=== PATIENT | female | born 1965 | race Caucasian/White ===

== ENCOUNTER 2018-12-19 07:56 | Inpatient (IN) | payer MEDICAID | END 2018-12-21 15:28 | disposition home or self-care (01) | LOC: ER 07:56 → TELE 16:31 → TELE-WESTW 21:30 | DX: K80.20 Calculus of gallbladder without cholecystitis without obstruction (principal); J90 Pleural effusion, not elsewhere classified; E44.0 Moderate protein-calorie malnutrition; C34.90 Malignant neoplasm of unspecified part of unspecified bronchus or lung; C78.7 Secondary malignant neoplasm of liver and intrahepatic bile duct; C79.70 Secondary malignant neoplasm of unspecified adrenal gland; I48.0 Paroxysmal atrial fibrillation ==

== ENCOUNTER 2018-12-31 09:24 | Emergency (ER) | payer MEDICAID ==
[~2018-12-31] VITALS: Ht 167.6 cm; Wt 104.3 kg
[~2018-12-31 09:24] MED LIST: PANT40T PO
[2018-12-31 10:12] VITALS: BP 128/67
== END 2018-12-31 10:58 | disposition home or self-care (01) ==
LOC: ER 09:25
DX: M54.9 Dorsalgia, unspecified (principal); J44.9 Chronic obstructive pulmonary disease, unspecified; Z76.0 Encounter for issue of repeat prescription; Z98.51 Tubal ligation status; Z87.891 Personal history of nicotine dependence

== ENCOUNTER 2019-09-10 13:47 | Inpatient (IN) | payer MEDICAID ==
[~2019-09-10] VITALS: Ht 172.7 cm; Wt 119.9 kg
[~2019-09-10 13:47] MED LIST changes: +ALBU2TAB4 PO; +ALL300T PO
[2019-09-10] MEDS ORDERED: IPRATROPIUM BROM 0.5 MG/2.5ML INH SOL NEB ONE (14:00)
[2019-09-10] MEDS ORDERED: ALBUTEROL SULF 2.5 MG/0.5ML(0.5%) NEB SOLN NEB ONE (14:00)
[2019-09-10] MEDS ORDERED: methylPREDNISolone SOD SUCC 125 MG/2 ML VL IV ONE (14:15)
[2019-09-10 14:43] LABS: Basophils # (auto) 0 uL; Hemoglobin 12.7 g/dL (12.2-16.2); Monocytes # (auto) 0.4 uL; Monocytes % (auto) 5.5 % (0.0-12.0)
[2019-09-10 14:44] LABS: Basophils % (auto) 0.2 % (0.0-2.0); Eosinophils # (auto) 0.1 uL; Eosinophils % (auto) 0.8 % (0.0-7.0); Hematocrit 40.4 % (36.0-46.0); Lymphocytes # (auto) 0.6 uL; Lymphocytes % (auto) 8.1 % (10.0-50.0); Mean Corpuscular Hemoglobin 26.4 pg (28.0-32.0); Mean Corpuscular Hgb Conc. 31.5 g/dL (32.0-36.0); Mean Corpuscular Volume 83.9 fL (80.0-100.0); Neutrophils # (auto) 6.8 uL; Neutrophils % (auto) 85.4 % (37.0-80.0); Platelet Count (auto) 208 10^3/uL (140-450); Red Blood Cells 4.82 10^6/uL (4.0-5.20); Red Cell Distribution Width 16.7 % (11.8-14.3)
[2019-09-10 14:54] LABS: Alanine Aminotransferase 54 U/L (13-56); Albumin 2.9 g/dL (3.4-5.0); Anion Gap 4 (5-15); Carbon Dioxide 40 mmol/L (21-32); Chloride 94 mmol/L (98-107); Glucose 107 mg/dL (74-106); Potassium 4.3 mmol/L (3.5-5.1); Sodium 138 mmol/L (136-145)
[2019-09-10 14:59] LABS: Alkaline Phosphatase 98 U/L (45-117); Aspartate Aminotransferase 45 U/L (15-37); Bilirubin, Total 0.3 mg/dL (0.2-1.0); Blood Urea Nitrogen 9 mg/dL (7-18); GFR African American 187 mL/min; GFR Non-African American 154 mL/min
[2019-09-10] MEDS ORDERED: IOHEXOL 300 MG/ML 100ML BOTTLE IJ ONE (16:01)
[2019-09-10] MEDS ORDERED: ONDANSETRON HCL 4 MG/2 ML VIAL IV ONE (20:00)
[2019-09-10] MEDS ORDERED: MORPHINE SULFATE 4 MG/ML SYR/VIAL IV ONE (20:00)
[2019-09-10] MEDS ORDERED: VANCOMYCIN PER PHARMACY 0 MG IV SCH (20:15)
[2019-09-10] MEDS ORDERED: NITROGLYCERIN 0.4 MG SL TAB SL PRN (20:15)
[2019-09-10] MEDS ORDERED: MORPHINE SULF INJ 2 MG/ML SYRINGE 1ML IV PRN ×2 (20:15)
[2019-09-10] MEDS ORDERED: HYDROcodone-ACET 7.5/325MG TAB PO PRN (20:15)
[2019-09-10] MEDS ORDERED: LORazepam 2MG/ML-1ML VIAL IV PRN (20:15)
[2019-09-10] MEDS ORDERED: SUCCINYLCHOLINE CHLORIDE 20 MG/ML 10ML VIAL IV ONE ×2 (20:30→20:31)
[2019-09-10] MEDS ORDERED: ETOMIDATE (2MG/ML) 20ML VIAL IV ONE ×2 (20:30→20:31)
[2019-09-10] MEDS ORDERED: MIDAZOLAM DRIP 50 mg/50mL 50 ML IV ONE (20:32)
[2019-09-10] MEDS: MIDAZOLAM DRIP 50 mg/50mL 50 ML IV SCH (20:49)
[2019-09-10] MEDS ORDERED: PROPOFOL 100 ML IV ONE (20:59)
[2019-09-10] MEDS: PROPOFOL 100 ML IV SCH (21:04)
[2019-09-10] MEDS ORDERED: VANCOMYCIN 1GM/250ML 250 ML IV ONE (21:30)
[2019-09-10 22:37] VITALS: BP 121/73
[2019-09-10] MEDS: ALBUTEROL SULF 2.5 MG/0.5ML(0.5%) NEB SOLN NEB SCH (22:37)
[2019-09-10] MEDS: IPRATROPIUM BROM 0.5 MG/2.5ML INH SOL NEB SCH (22:37)
[2019-09-10] MEDS: VANCOMYCIN 1GM/250ML 250 ML IV SCH (22:46)
[2019-09-10] MEDS: FAMOTIDINE (10MG/ML) 2ML VL IV SCH (22:46)
[2019-09-10 22:59] LABS: Urine Bacteria FEW /hpf (None Seen); Urine Blood Negative /uL (Negative); Urine Hyaline Cast FEW /lpf (0 - 2); Urine Mucus FEW (None Seen); Urine WBC 1 /hpf (0 - 5)
[2019-09-10 23:10] LABS: Urine Specific Gravity > 1.050 (1.001-1.035)
[2019-09-11] VITALS (77 sets, daily range): BP systolic 97–134; BP diastolic 59–80
[2019-09-11] MEDS: MIDAZOLAM DRIP 50 mg/50mL 50 ML IV SCH ×4 (00:05→13:30)
[2019-09-11] MEDS ORDERED: ACETAMINOPHEN 650 MG RECT SUPP PR ONE (02:00)
[2019-09-11] MEDS: PROPOFOL 100 ML IV SCH ×3 (04:34→19:00)
[2019-09-11] MEDS: IPRATROPIUM BROM 0.5 MG/2.5ML INH SOL NEB SCH ×5 (05:38→22:13)
[2019-09-11] MEDS: ALBUTEROL SULF 2.5 MG/0.5ML(0.5%) NEB SOLN NEB SCH ×5 (05:38→22:13)
[2019-09-11] MEDS: VANCOMYCIN 1GM/250ML 250 ML IV SCH ×3 (06:23→23:30)
--- NOTE | 2019-09-11 07:15 | NUR ---
Respiratory note: MESSAGE LEFT FOR DR. VITALE CELL PHONE REGARDING CRITICAL AM ABG RESULTS.
--- NOTE | 2019-09-11 07:58 | NUR ---
Respiratory note: PT TRANSPORTED TO ICU 109 WITHOUT INCIDENT. ETT REMAINED IN PLACE AND SECURED BY A FLAKO. PT WAS VENTILATED VIA AMBU-BAG CONNECTED TO E-CYLINDER. PT PLACED BACK ONTO ORDERED VENT SETTINGS UPON ARRIVAL TO ICU.
[2019-09-11 08:55] LABS: Basophils # (auto) 0 uL; Basophils % (auto) 0.5 % (0.0-2.0); Eosinophils # (auto) 0 uL
[2019-09-11 08:57] LABS: Eosinophils % (auto) 0.2 % (0.0-7.0); Hematocrit 35.8 % (36.0-46.0); Hemoglobin 11.5 g/dL (12.2-16.2); Lymphocytes # (auto) 0.8 uL; Lymphocytes % (auto) 8.8 % (10.0-50.0); Mean Corpuscular Hemoglobin 26.6 pg (28.0-32.0); Mean Corpuscular Hgb Conc. 32.2 g/dL (32.0-36.0); Mean Corpuscular Volume 82.5 fL (80.0-100.0); Monocytes # (auto) 0.8 uL; Monocytes % (auto) 8.2 % (0.0-12.0); Neutrophils # (auto) 7.7 uL; Neutrophils % (auto) 82.3 % (37.0-80.0); Platelet Count (auto) 216 10^3/uL (140-450); Red Blood Cells 4.34 10^6/uL (4.0-5.20); Red Cell Distribution Width 16.9 % (11.8-14.3); White Blood Cell 9.3 10^3/uL (4.4-10.8)
[2019-09-11 09:08] LABS: INR 1.01 (0.9-1.15)
[2019-09-11 09:12] LABS: Albumin 2.6 g/dL (3.4-5.0); Calcium 8.9 mg/dL (8.5-10.1)
[2019-09-11] MEDS: NOREPINEPHRINE 8 MG/250ML KIT 250 ML IV SCH (09:13)
[2019-09-11 09:15] LABS: Bilirubin, Total 0.5 mg/dL (0.2-1.0); Total Protein 6.2 g/dL (6.4-8.2)
[2019-09-11] MEDS: FAMOTIDINE (10MG/ML) 2ML VL IV SCH ×2 (10:11→23:30)
[2019-09-11] MEDS: ENOXAPARIN SOD 40 MG/0.4 ML SYRINGE SC SCH (10:11)
[2019-09-11] MEDS: cefTRIAXone 1GM/50ML D5W 50 ML IV SCH (10:13)
--- NOTE | 2019-09-11 11:10 | NUR ---
DR GALLEGO VISITS AND EXAMINES PATIENT - NO NEW ORDERS RECEIVED. Addendum: 09/11/19 at 1139 by Karlee Hays RN DR GALLEGO SPEAKS WITH PATIENT'S DAUGHTER RE: CURRENT PATIENT CONDITION- VERBALIZES UNDERSTANDING.
--- NOTE | 2019-09-11 11:39 | NUR ---
DR GALLEGO VISITS AND EXAMINES PATIENT - ORDERS RECEIVED. CHEST ULTRASOUND DONE AT BEDSIDE PER MD - STATES VERY LITTLE FLUID PRESENT. PATIENT'S DAUGHTER AT BEDSIDE - UPDATED ON CURRENT PATIENT CONDITION AND NEED FOR TRANSFER TO HIGHER LEVEL OF CARE FOR MASS BLOCKING RIGHT MAINSTEM BRONCHUS AND NEED FOR POSSIBLE STENTING - ORDER PLACED. Addendum: 09/11/19 at 1142 by Karlee Hays RN PATIENT'S DAUGHTER VERBALIZES UNDERSTANDING OF ABOVE CONVERSATION. Addendum: 09/11/19 at 1150 by Karlee Hays RN ERROR - INCORRECT MD CHARTED - SHOULD BE DR FINCH.
--- NOTE | 2019-09-11 12:23 | NUR ---
I faxed higher level of care order/clinical information to [facility] and [facility] as well as [facility]-providing contact information for Dr. Garner as well as the nurse's station.
[2019-09-11] MEDS: methylPREDNISolone SOD SUCC 125 MG/2 ML VL IV SCH ×2 (14:29→23:30)
[2019-09-11] MEDS ORDERED: SODIUM CHLORIDE 0.9% 1,000 ML IV ONE (14:45)
--- NOTE | 2019-09-11 15:01 | NUR ---
1445 09/11/19 I spoke with Nica at the [facility] transfer center [phone]-provided her with contact information for Dr. Garner as well as the nurse's station-re faxed clinical information as requested. She said they have no ICU beds available at this time. I called [facility] transfer center and spoke with Sylc-[phone] (option 2, option 3)-provided him with additional clinical information as requested-they have contact information for MD as well as the nurse's station. I spoke with patient's nurse Karlee to update her on the status of the transfer. I spoke with [facility] Business Operations Specialist Gabriela [phone] regarding the need for transfer-authorization number for [facility] is [id number], and the authorization for the accepting facility is [id number].
--- NOTE | 2019-09-11 15:35 | NUR ---
DR TYLER VISITS AND EXAMINES PATIENT - ORDERS RECEIVED.
--- NOTE | 2019-09-11 16:51 | NUR ---
[facility] critical care transport placed on will call pending transfer to [facility].
[2019-09-11 18:21] LABS: Basophils # (auto) 0.1 uL; Monocytes # (auto) 0.8 uL; Nucleated Red Blood Cells % 0.1 %
[2019-09-11 18:25] LABS: Basophils % (auto) 0.7 % (0.0-2.0); Eosinophils # (auto) 0.1 uL; Eosinophils % (auto) 0.5 % (0.0-7.0); Lymphocytes # (auto) 0.8 uL; Lymphocytes % (auto) 8.4 % (10.0-50.0); Mean Corpuscular Hemoglobin 26.1 pg (28.0-32.0); Mean Corpuscular Hgb Conc. 31.5 g/dL (32.0-36.0); Mean Corpuscular Volume 82.8 fL (80.0-100.0); Monocytes % (auto) 8.8 % (0.0-12.0); Neutrophils # (auto) 7.9 uL; Neutrophils % (auto) 81.6 % (37.0-80.0); Platelet Count (auto) 240 10^3/uL (140-450); Red Blood Cells 4.59 10^6/uL (4.0-5.20); White Blood Cell 9.6 10^3/uL (4.4-10.8)
[2019-09-11 18:26] LABS: Albumin 2.7 g/dL (3.4-5.0); Bilirubin, Direct 0.2 mg/dL (0-0.2); Calcium 9.1 mg/dL (8.5-10.1); Magnesium 2.1 mg/dL (1.6-2.6); Potassium 4.8 mmol/L (3.5-5.1)
[2019-09-11 18:29] LABS: BUN/Creatinine Ratio 18.6; Bilirubin, Total 0.5 mg/dL (0.2-1.0); Total Protein 6.5 g/dL (6.4-8.2)
[2019-09-11 18:36] LABS: INR 0.99 (0.9-1.15)
[2019-09-12] VITALS (97 sets, daily range): BP systolic 93–123; BP diastolic 51–75
--- NOTE | 2019-09-12 00:45 | NUR ---
PROVIDED BED BATH WITH [facility]CG WIPES AND PARTIAL LINEN CHANGE; PT. TOLERATED WELL; WILL CONT. TO MONITOR.
[2019-09-12] MEDS: PROPOFOL 100 ML IV SCH ×3 (02:40→18:40)
[2019-09-12] MEDS: MIDAZOLAM DRIP 50 mg/50mL 50 ML IV SCH ×4 (02:41→20:45)
[2019-09-12 04:26] LABS: Basophils # (auto) 0.1 uL; Basophils % (auto) 0.6 % (0.0-2.0); Eosinophils # (auto) 0 uL; Hematocrit 35.2 % (36.0-46.0); Hemoglobin 11.3 g/dL (12.2-16.2); Lymphocytes # (auto) 0.4 uL; Mean Corpuscular Hemoglobin 26.5 pg (28.0-32.0); Mean Corpuscular Hgb Conc. 32.2 g/dL (32.0-36.0); Mean Corpuscular Volume 82.1 fL (80.0-100.0); Monocytes # (auto) 0.4 uL; Monocytes % (auto) 3.9 % (0.0-12.0); Neutrophils # (auto) 8.6 uL; Neutrophils % (auto) 91.5 % (37.0-80.0); Platelet Count (auto) 199 10^3/uL (140-450); Red Blood Cells 4.28 10^6/uL (4.0-5.20); Red Cell Distribution Width 17.2 % (11.8-14.3); White Blood Cell 9.4 10^3/uL (4.4-10.8)
[2019-09-12 04:39] LABS: INR 0.98 (0.9-1.15); Partial Thromboplastin Time 25.4 sec (23.64-32.05)
[2019-09-12 05:43] LABS: Albumin 2.6 g/dL (3.4-5.0); Calcium 8.6 mg/dL (8.5-10.1); Magnesium 2.2 mg/dL (1.6-2.6); Potassium 4.4 mmol/L (3.5-5.1)
[2019-09-12 05:46] LABS: BUN/Creatinine Ratio 24.2; Bilirubin, Direct 0.1 mg/dL (0-0.2); Bilirubin, Total 0.4 mg/dL (0.2-1.0); Total Protein 6.1 g/dL (6.4-8.2)
[2019-09-12] MEDS: IPRATROPIUM BROM 0.5 MG/2.5ML INH SOL NEB SCH ×5 (06:37→22:02)
[2019-09-12] MEDS: ALBUTEROL SULF 2.5 MG/0.5ML(0.5%) NEB SOLN NEB SCH ×5 (06:37→22:02)
[2019-09-12] MEDS: methylPREDNISolone SOD SUCC 125 MG/2 ML VL IV SCH ×3 (06:45→21:41)
[2019-09-12] MEDS: VANCOMYCIN 1GM/250ML 250 ML IV SCH ×3 (06:56→21:41)
--- NOTE | 2019-09-12 08:48 | NUR ---
0845 09/12/19 I called [facility] transfer center and spoke with Ciara, she said they are still working on getting the doctors to connect-and they have no ICU beds available right now.
--- NOTE | 2019-09-12 08:52 | NUR ---
0850 09/12/19 I called the [facility] transfer center [phone] and spoke with Gema, she said no ICU beds available yet, she will call me within an hour for an update.
[2019-09-12] MEDS: cefTRIAXone 1GM/50ML D5W 50 ML IV SCH (08:54)
[2019-09-12] MEDS: NOREPINEPHRINE 8 MG/250ML KIT 250 ML IV SCH ×2 (08:55→21:05)
--- NOTE | 2019-09-12 09:00 | NUR ---
SEDATION VACATION HELD DUE TO PATIENT WITH POSITIVE COUGH/GAG REFLEX, PERRLA 4MM AND BRISK AND WITHDRAWS ALL EXTREMITIES TO PAINFUL STIMULI Addendum: 09/12/19 at 1715 by Karlee Hays RN Amended: Links added.
--- NOTE | 2019-09-12 09:21 | NUR ---
0920 09/12/19 I faxed higher level of care order/clinical information to [facility] and [facility]-provided them with contact information for MD as well as the nurse's station.
--- NOTE | 2019-09-12 10:00 | NUR ---
assessment Patient is a 54 year old female who is on a vent. No family at bedside. Patients post discharge needs to be determined after extubation.
[2019-09-12] MEDS: ENOXAPARIN SOD 40 MG/0.4 ML SYRINGE SC SCH (10:30)
[2019-09-12] MEDS: FAMOTIDINE (10MG/ML) 2ML VL IV SCH ×2 (10:30→21:41)
--- NOTE | 2019-09-12 10:34 | NUR ---
I received a call from Junior at [facility] letting me know that they can not accept this patient because they do not have the capability to perform the required procedure.
--- NOTE | 2019-09-12 11:15 | NUR ---
Silvia from [facility] called - given clinical info as requested, also requested to speak with . notified - states will call after he evaluates patient.
--- NOTE | 2019-09-12 12:05 | NUR ---
WOUND CARE NOTE: PATIENT ADDED TO SKIN INTEGRITY MONITORING D/T PATIENT'S INTUBATION STATUS. PATIENT ADMITTED TO [facility] WITH DIAGNOSIS OF ACUTE HYPOXIC RESPIRATORY FAILURE. CURRENT HAIM SCORE IS 13. PATIENT IS WOUND FREE AT THIS TIME. SKIN/WOUND CARE PLAN IMPLEMENTED. PATIENT WOULD BENEFIT FROM FREQUENT TURN SCHEDULE Q 2 HOURS, PRN CONDITION PERMITS, WITH PRESSURE REDISTRIBUTION USING PILLOWS/WEDGES, BID/PRN APPLICATION OF MOISTURE BARRIER CREAM, OPTIFOAM GENTLE SACRAL DRESSING PREVENTATIVE, DIETARY CONSULT, SKIN/WOUND CARE PLAN, CONTINUED MONITORING BY WOUND CARE TEAM.
--- NOTE | 2019-09-12 12:06 | NUR ---
1200 09/12/19 I called [facility] transfer center [phone] and spoke with Mark, he said they have no ICU beds available at this time-to check back in at 1500.
--- NOTE | 2019-09-12 12:14 | NUR ---
1210 09/12/19 I called [facility] Transfer Center [phone] and left message regarding the transfer request for this patient.
--- NOTE | 2019-09-12 14:17 | NUR ---
1400 09/12/19 I spoke with Melody Guaman at the [facility] Transfer Center, provided her with the [facility] authorization number as well as contact information for Gabriela at [facility]. Melody Guaman said they will give me a call back to let me know if they can accept this patient. I spoke with patient's daughter Janelle Medrano regarding the status of the transfer-she was inquiring about [facility]-she is aware that it would have to be authorized by the insurance. I did call [facility] transfer center [phone] and spoke with Dirk, provided him with contact information for MD as well as faxing him requested clinical items to [phone]-he will review the information with his MD and give me a call back to let me know if this is a patient they can accept. I did call [facility] Senior Speech Pathologist Gabriela to make her aware of daughter's request for [facility], per Gabriela that is not a place they will generally authorize, especially if patient was receiving cancer treatment elsewhere.
--- NOTE | 2019-09-12 15:40 | NUR ---
Silvia from [facility] phones - states that [facility] does not have a rigid bronchoscope in order to do procedure so they have to decline patient.
--- NOTE | 2019-09-12 16:00 | NUR ---
RACH LEFT FOR DR COURTNEY RE: [facility] DECLINATION OF PATIENT.
[2019-09-12] MEDS ORDERED: HYDR-4833 PO (16:33)
[2019-09-12] MEDS ORDERED: BISA1TAB6 PO (16:34)
[2019-09-12] MEDS ORDERED: LORA2TAB89 PO (16:34)
[2019-09-12] MEDS ORDERED: MORP15TA PO (16:40)
--- NOTE | 2019-09-12 16:50 | NUR ---
DR TYLER VISITS AND EXAMINES PATIENT - NO NEW ORDERS RECEIVED.
--- NOTE | 2019-09-12 17:55 | NUR ---
RT NOTE RECEIVED PT INTUBATED AND ON VENT V20 ON STATED SETTINGS. VENT IS PLUGGED TO RED OUTLET. ALARMS ARE ON AND AUDIBLE AT NURSES STATION. AMBU BAG AT BEDSIDE AND CONNECTED TO O2 SOURCE. 8.0 ETT IS SECURED WITH ANCHORFAST AT 24 CM TO THE ORAL LEFT. BILATERAL BS ARE CLEAR/DIMINISHED. PT WAS SUCTIONED FOR MODERATE RETURN. HHN GIVEN INLINE WITH 2.5 MG ALBUTEROL AND 0.5 MG ATROVENT WITHOUT ADVERSE REACTION NOTED. PT TEMP 98.8. CONT ORDERED. POX 96% Addendum: 09/12/19 at 1940 by Pretty Taylor RT Amended: Links added.
--- NOTE | 2019-09-12 20:13 | NUR ---
RT NOTE ROUTINE VENT CHECK DONE. PT INTUBATED AND ON VENT V20 ON STATED SETTINGS. VENT IS PLUGGED TO RED OUTLET. ALARMS ARE ON AND AUDIBLE AT NURSES STATION. AMBU BAG AT BEDSIDE AND CONNECTED TO O2 SOURCE. 8.0 ETT IS SECURED WITH ANCHORFAST AT 24 CM TO THE ORAL LEFT. PT TEMP 98.8. CONT ORDERED. POX 96% Addendum: 09/12/19 at 2036 by Pretty Taylor RT Amended: Links added.
--- NOTE | 2019-09-12 22:04 | NUR ---
RT NOTE ROUTINE VENT CHECK DONE. PT INTUBATED AND ON VENT V20 ON STATED SETTINGS. VENT IS PLUGGED TO RED OUTLET. ALARMS ARE ON AND AUDIBLE AT NURSES STATION. AMBU BAG AT BEDSIDE AND CONNECTED TO O2 SOURCE. 8.0 ETT IS SECURED WITH ANCHORFAST AT 24 CM TO THE ORAL LEFT. BS ARE CLEAR/DIM. PT WAS SUCTIONED FOR SMALL RETURN. HHN GIVEN INLINE WITH 2.5 MG ALBUTEROL AND 0.5 MG ATROVENT WITHOUT ADVERSE REACTION NOTED. PT TEMP 99.0. CONT ORDERED. POX 96% Addendum: 09/12/19 at 2229 by Pretty Taylor RT Amended: Links added.
[2019-09-13] VITALS (100 sets, daily range): BP systolic 96–125; BP diastolic 55–72
--- NOTE | 2019-09-13 00:04 | NUR ---
RT NOTE ROUTINE VENT CHECK DONE. PT INTUBATED AND ON VENT V20 ON STATED SETTINGS. VENT IS PLUGGED TO RED OUTLET. ALARMS ARE ON AND AUDIBLE AT NURSES STATION. AMBU BAG AT BEDSIDE AND CONNECTED TO O2 SOURCE. 8.0 ETT IS SECURED WITH ANCHORFAST AT 24 CM TO THE ORAL LEFT. PT TEMP 99.0. CONT ORDERED. POX 96% Addendum: 09/13/19 at 0028 by Pretty Taylor RT Amended: Links added.
--- NOTE | 2019-09-13 00:46 | NUR ---
S/W [facility] # AND POSSIBLE BED AVAILABILITY; DR. Rachid DEAN PHONE NUMBER PROVIDED TO THEM TO ENABLE THEIR DOCTOR TO SPEAK WITH DR. DEAN.
--- NOTE | 2019-09-13 00:52 | NUR ---
S/W [facility] AGAIN AND NUMBERS PROVIDED WERE NOT ABLE TO REACH DR. Rachid DEAN; WILL INVESTIGATE FURTHER.
--- NOTE | 2019-09-13 01:13 | NUR ---
LEFT MESSAGE WITH Rachid DEAN ANSWERING SERVICE, # AND INFORMED HIM THAT [facility] MIGHT HAVE A BED AVAILABILITY AND NEEDED TO SPEAK WITH DOCTOR FOR FURTHER INFORMATION; TRANSFER CENTER NUMBER LEFT IN MESSAGE- .
--- NOTE | 2019-09-13 01:25 | NUR ---
S/W DR. Rachid DEAN AND HE WILL GET IN TOUCH WITH [facility] TO SEE ABOUT A BED AVAILABILITY.
--- NOTE | 2019-09-13 02:00 | NUR ---
[facility] CALLED BACK AND THEY INFORMED ME THAT THERE WAS NO ATTENDING AVAILABLE FOR TONIGHT TO ADMIT; WILL RECHECK IN AM.
--- NOTE | 2019-09-13 02:08 | NUR ---
RT NOTE ROUTINE VENT CHECK DONE. PT INTUBATED AND ON VENT V20 ON STATED SETTINGS. VENT IS PLUGGED TO RED OUTLET. ALARMS ARE ON AND AUDIBLE AT NURSES STATION. AMBU BAG AT BEDSIDE AND CONNECTED TO O2 SOURCE. 8.0 ETT IS SECURED WITH ANCHORFAST AT 24 CM TO THE ORAL LEFT. PT WAS SUCTIONED FOR SMALL RETURN. PT TEMP 98.8. CONT ORDERED. POX 97% Addendum: 09/13/19 at 0227 by Pretty Taylor RT Amended: Links added.
--- NOTE | 2019-09-13 03:30 | NUR ---
[facility] CALLED AND THEY HAVE A BED AND ACCEPTING PHYSICIAN; WILL PREPARE PATIENT FOR TRANFER.
--- NOTE | 2019-09-13 04:08 | NUR ---
RT NOTE ROUTINE VENT CHECK DONE. PT INTUBATED AND ON VENT V20 ON STATED SETTINGS. VENT IS PLUGGED TO RED OUTLET. ALARMS ARE ON AND AUDIBLE AT NURSES STATION. AMBU BAG AT BEDSIDE AND CONNECTED TO O2 SOURCE. 8.0 ETT IS SECURED WITH ANCHORFAST AT 24 CM TO THE ORAL LEFT. PT WAS SUCTIONED FOR SMALL RETURN. HME, T-PIECE AND INLINE SUCTION CHANGED WITHOUT ADVERSE REACTION NOTED. PT TEMP 98.8. CONT ORDERED. POX 97% Addendum: 09/13/19 at 0441 by Pretty Taylor RT Amended: Links added.
--- NOTE | 2019-09-13 04:09 | NUR ---
LEFT MESSAGE WITH DAUGHTER-ALEN ROJAS # IN REGARDS TO TRANSFER TO [facility]/ICU/# [id number] WHEN READY.
[2019-09-13 04:25] LABS: % Iron Saturation 7.7 % (15-50)
[2019-09-13 06:00] LABS: Ferritin 86.2 ng/mL (10-322)
[2019-09-13] MEDS: methylPREDNISolone SOD SUCC 125 MG/2 ML VL IV SCH ×2 (06:00→14:28)
[2019-09-13 06:01] LABS: Folate (Folic Acid) 8.36 ng/mL (5.38-24)
[2019-09-13] MEDS: ALBUTEROL SULF 2.5 MG/0.5ML(0.5%) NEB SOLN NEB SCH ×5 (06:08→22:24)
[2019-09-13] MEDS: IPRATROPIUM BROM 0.5 MG/2.5ML INH SOL NEB SCH ×5 (06:09→22:25)
[2019-09-13] MEDS: VANCOMYCIN 1GM/250ML 250 ML IV SCH ×2 (06:30→14:27)
--- NOTE | 2019-09-13 07:30 | NUR ---
TRANSFER TO [facility] CANCELLED TRANSFER CENTER FROM [facility] CALLING CONFIRMING THEY HAVE RECEIVED TRANSFER AND REPATRIATION. [facility] REQUESTING ETA FOR [facility]. CHART REVIEWED ORDERS FOR TRANSFER CONFIRMED. [facility] CALLED WITH ETA OF 1000. PACKET FINALIZED. 0800 [facility] FROM TRANSFER CENTER CALLED BACK STATING TRANSFER IS TO BE CANCELLED. HOSPITALIST AGREED TO ACCEPT PATIENT BUT [facility]ANQUET COOK REVIEWED CHART AND DOES NOT AGREE TO ACCEPT PATIENT AND IS RECOMMENDING [facility] CAMARA AT THIS TIME. [facility] CALLED TO CANCEL BUTTON CUTTING MACHINE OPERATOR. REHABILITATION AIDE AWARE.
[2019-09-13] MEDS: MIDAZOLAM DRIP 50 mg/50mL 50 ML IV SCH (08:03)
--- NOTE | 2019-09-13 08:44 | NUR ---
0830 09/13/19 I spoke with Nica at the [facility] transfer center and was told they can't accept this patient because they don't have the equipment to perform the requested procedure. I spoke with [facility] yesterday and was told that they can't accept the patient because they don't have the capability to perform the requested procedure. I called [facility] transfer center and spoke with Ciara, they are still trying to connect their doctors-they reached out to both Dr. Jase Nichols and Dr He-waiting for return call. I spoke with patient's primary nurse to update her on the status of the transfer.
[2019-09-13 08:57] LABS: Basophils # (auto) 0.1 uL; Eosinophils # (auto) 0 uL; Hematocrit 34.4 % (36.0-46.0); Lymphocytes # (auto) 0.4 uL; Mean Corpuscular Volume 82.4 fL (80.0-100.0); Monocytes # (auto) 0.4 uL; Neutrophils # (auto) 8.1 uL
[2019-09-13 08:58] LABS: Basophils % (auto) 1.3 % (0.0-2.0); Hemoglobin 10.9 g/dL (12.2-16.2); Lymphocytes % (auto) 4.1 % (10.0-50.0); Mean Corpuscular Hgb Conc. 31.6 g/dL (32.0-36.0); Monocytes % (auto) 4.4 % (0.0-12.0); Neutrophils % (auto) 90.2 % (37.0-80.0); Platelet Count (auto) 196 10^3/uL (140-450); Red Blood Cells 4.18 10^6/uL (4.0-5.20); Red Cell Distribution Width 16.9 % (11.8-14.3)
[2019-09-13 09:23] LABS: Albumin 2.6 g/dL (3.4-5.0); BUN/Creatinine Ratio 31.6; Calcium 8.9 mg/dL (8.5-10.1); Potassium 4.6 mmol/L (3.5-5.1)
[2019-09-13 09:26] LABS: Bilirubin, Total 0.3 mg/dL (0.2-1.0); Total Protein 6.3 g/dL (6.4-8.2)
[2019-09-13] MEDS: cefTRIAXone 1GM/50ML D5W 50 ML IV SCH (09:36)
[2019-09-13] MEDS: PROPOFOL 100 ML IV SCH ×2 (09:37→09:55)
[2019-09-13] MEDS: ENOXAPARIN SOD 40 MG/0.4 ML SYRINGE SC SCH (09:38)
[2019-09-13] MEDS: FAMOTIDINE (10MG/ML) 2ML VL IV SCH (09:38)
--- NOTE | 2019-09-13 11:32 | NUR ---
NUTRITION CONSULT/ASSESSMENT NOTES Please refer to link notes of nutrition screen form filed under the intervention section of the plan of care for further details. Est. Needs: 1750 kcal to 2350 kcal (15-20 kcal/kgBW), 94 gms to 117 gms pro (0.8-1.0 gms/kgBW). Will continue to monitor pertinent labs and reassess nutrient need prn Thank you for this consult. Addendum: 09/13/19 at [address] Amended: Links added.
--- NOTE | 2019-09-13 12:50 | NUR ---
SEWER INSPECTOR SPOKE WITH MD AT [facility]. DR. COURTNEY STATING MD FROM [facility] IS ACCEPTING TRANSFER BUT FAMILY NEEDS TO BE AWARE THERE IS A POSSIBILITY PROCEDURE CANNOT BE COMPLETED. DR. COURTNEY SPOKE WITH DAUGHTER ALEJANDRO, DAUGHTER VERBALIZED UNDERSTANDING AND STATING PATIENTS ONCOLOGIST IS RECOMMENDING TRANSFER TO [facility] AND [facility]. MD VERBALIZED UNDERSTANDING. CASE MANAGEMENT NOTIFIED.
--- NOTE | 2019-09-13 14:38 | NUR ---
1430 09/13/19 I spoke with [facility] Bell Maker Gabriela [phone] to let her know that we have had 3 facilities ([facility], [facility] and [facility]) decline this patient because they can not perform the procedure that is being requested. Per Gabriela at this time she can not give authorization for [facility]. She suggested that I reach out to [facility] and [facility]. I faxed transfer request/clinical information to both [facility] and [facility] along with contact information for Dr. Nichols/Dr. He and the nurse's station.
--- NOTE | 2019-09-13 14:54 | NUR ---
1450 09/13/19 I received a call from Yvonne at the [facility] transfer center, they did receive faxed information-I provided her with authorization number from [facility] as well as contact information for [facility] Bureau Chief Gabriela.
--- NOTE | 2019-09-13 16:00 | NUR ---
Family updated on pt status Family of ALEN ROJAS updated on patient's status and condition. All questions and concerns addressed. DaughterJanelle verbalized understanding.
--- NOTE | 2019-09-13 16:15 | NUR ---
ROUND DR. DEAN UPDATED DAUGHTER ALEJANDRO AND SON AT BEDSIDE ON PATIENTS CURRENT STATUS. QUESTIONS AND CONCERNS ADDRESSED. SEE NEW ORDERS.
--- NOTE | 2019-09-13 17:00 | NUR ---
Gastric residual Patient noted to have approx 50cc brown/ green bilious output via og. Hypoactive bs. Adb soft. Order for Reglan obtained by . Feedings to be started when delivered.
[2019-09-13] MEDS ORDERED: Jevity 1.2 Cal/Fiber 1 Liter GT SCH (19:30)
[2019-09-13] MEDS: NOREPINEPHRINE 8 MG/250ML KIT 250 ML IV SCH (21:05)
[2019-09-14] VITALS (104 sets, daily range): BP systolic 105–153; BP diastolic 55–84
[2019-09-14] MEDS: METOCLOPRAMIDE HCL 5MG/ml INJ 2ml VIAL IV SCH ×4 (01:10→22:00)
[2019-09-14] MEDS: FAMOTIDINE (10MG/ML) 2ML VL IV SCH ×3 (01:10→22:00)
[2019-09-14] MEDS: methylPREDNISolone SOD SUCC 125 MG/2 ML VL IV SCH ×4 (01:11→22:00)
[2019-09-14] MEDS: VANCOMYCIN 1GM/250ML 250 ML IV SCH ×4 (01:11→22:30)
[2019-09-14] MEDS: IPRATROPIUM BROM 0.5 MG/2.5ML INH SOL NEB SCH ×5 (06:34→22:59)
[2019-09-14] MEDS: ALBUTEROL SULF 2.5 MG/0.5ML(0.5%) NEB SOLN NEB SCH ×5 (06:34→22:59)
--- NOTE | 2019-09-14 07:49 | NUR ---
SHIFT OPENING NOTE REPORT RECEIVED FROM FORMING TUBE SELECTOR. PATIENT ON MECHANICAL VENTILATOR, SEDATED WITH PROPOFOL AND VERSED, NO VASOPRESSORS. LUNGS CLEAR THROUGHOUT WITH CLEAR ORAL SECRETIONS. ABDOMEN ROUND, SOFT AND NONTENDER, HYPOACTIVE BOWEL SOUNDS. RICH DRAINING LIGHT KLAUDIA URINE WITH BAG FREE OF KINKS AND HUNG BELOW BLADDER. SCD'S BILATERALLY TO LOWER EXTREMITIES, SKIN INTEGRITY SEE ASSESSMENT
[2019-09-14] MEDS: ENOXAPARIN SOD 40 MG/0.4 ML SYRINGE SC SCH (09:30)
[2019-09-14] MEDS: cefTRIAXone 1GM/50ML D5W 50 ML IV SCH (09:30)
[2019-09-14] MEDS: MIDAZOLAM DRIP 50 mg/50mL 50 ML IV SCH ×2 (11:30→16:13)
[2019-09-14] MEDS: PROPOFOL 100 ML IV SCH ×2 (11:31→16:52)
--- NOTE | 2019-09-14 11:52 | NUR ---
DR. EAGLE AT BEDSIDE
--- NOTE | 2019-09-14 11:54 | NUR ---
DR. COURTNEY AT BEDSIDE
[2019-09-14] MEDS: DexMEDEtomidine 400 MCG in D5W 5% 96 ML IV SCH (12:31)
--- NOTE | 2019-09-14 14:07 | NUR ---
PARTIAL LINEN CHANGE PERFORMED AT THIS TIME
--- NOTE | 2019-09-14 15:37 | NUR ---
TUBE FEEDING RESTARTED
[2019-09-14 18:15] LABS: Basophils # (auto) 0 uL; Eosinophils # (auto) 0 uL; Hemoglobin 11.2 g/dL (12.2-16.2); Lymphocytes # (auto) 0.3 uL; Mean Corpuscular Hemoglobin 26.3 pg (28.0-32.0); Monocytes # (auto) 0.5 uL; Neutrophils # (auto) 7.1 uL; White Blood Cell 7.9 10^3/uL (4.4-10.8)
[2019-09-14 18:18] LABS: Basophils % (auto) 0.3 % (0.0-2.0); Hematocrit 34.9 % (36.0-46.0); Lymphocytes % (auto) 3.9 % (10.0-50.0); Mean Corpuscular Volume 82.4 fL (80.0-100.0); Monocytes % (auto) 6.1 % (0.0-12.0); Neutrophils % (auto) 89.7 % (37.0-80.0); Platelet Count (auto) 205 10^3/uL (140-450); Red Blood Cells 4.24 10^6/uL (4.0-5.20); Red Cell Distribution Width 17.2 % (11.8-14.3)
[2019-09-14 18:27] LABS: INR 0.99 (0.9-1.15); Partial Thromboplastin Time 23.3 sec (23.64-32.05)
[2019-09-14 18:44] LABS: Albumin 2.6 g/dL (3.4-5.0); Calcium 8.8 mg/dL (8.5-10.1); Magnesium 2.4 mg/dL (1.6-2.6); Potassium 3.9 mmol/L (3.5-5.1)
[2019-09-14 18:48] LABS: BUN/Creatinine Ratio 38.6; Bilirubin, Direct 0.3 mg/dL (0-0.2); Bilirubin, Total 0.5 mg/dL (0.2-1.0); Total Protein 6.5 g/dL (6.4-8.2)
[2019-09-14] MEDS: NOREPINEPHRINE 8 MG/250ML KIT 250 ML IV SCH (21:05)
[2019-09-15] VITALS (85 sets, daily range): BP systolic 107–172; BP diastolic 54–91
[2019-09-15] MEDS ORDERED: METOCLOPRAMIDE HCL 5MG/ml INJ 2ml VIAL ONE
[2019-09-15 04:09] LABS: Basophils # (auto) 0 uL; Eosinophils # (auto) 0 uL; Lymphocytes # (auto) 0.4 uL; Monocytes # (auto) 0.5 uL
[2019-09-15 04:14] LABS: Basophils % (auto) 0.2 % (0.0-2.0); Hematocrit 32.8 % (36.0-46.0); Hemoglobin 10.5 g/dL (12.2-16.2); Mean Corpuscular Hemoglobin 26.5 pg (28.0-32.0); Mean Corpuscular Hgb Conc. 32.1 g/dL (32.0-36.0); Mean Corpuscular Volume 82.6 fL (80.0-100.0); Monocytes % (auto) 6.8 % (0.0-12.0); Neutrophils # (auto) 6.4 uL; Nucleated Red Blood Cells % 0.1 %; Platelet Count (auto) 194 10^3/uL (140-450); Red Blood Cells 3.97 10^6/uL (4.0-5.20); Red Cell Distribution Width 17.1 % (11.8-14.3); White Blood Cell 7.3 10^3/uL (4.4-10.8)
[2019-09-15 04:22] LABS: INR 0.99 (0.9-1.15); Partial Thromboplastin Time 23.8 sec (23.64-32.05)
[2019-09-15 04:44] LABS: Calcium 8.5 mg/dL (8.5-10.1); Potassium 4.1 mmol/L (3.5-5.1)
[2019-09-15 04:52] LABS: Albumin 2.5 g/dL (3.4-5.0); BUN/Creatinine Ratio 42.4; Bilirubin, Direct 0.2 mg/dL (0-0.2); Bilirubin, Total 0.4 mg/dL (0.2-1.0); Magnesium 2.4 mg/dL (1.6-2.6)
[2019-09-15] MEDS: DexMEDEtomidine 400 MCG in D5W 5% 96 ML IV SCH (05:38)
[2019-09-15] MEDS: methylPREDNISolone SOD SUCC 125 MG/2 ML VL IV SCH (06:00)
[2019-09-15] MEDS: METOCLOPRAMIDE HCL 5MG/ml INJ 2ml VIAL IV SCH ×2 (06:00→14:16)
[2019-09-15] MEDS: IPRATROPIUM BROM 0.5 MG/2.5ML INH SOL NEB SCH ×4 (06:10→19:27)
[2019-09-15] MEDS: ALBUTEROL SULF 2.5 MG/0.5ML(0.5%) NEB SOLN NEB SCH ×4 (06:10→19:27)
[2019-09-15] MEDS: VANCOMYCIN 1GM/250ML 250 ML IV SCH (06:30)
--- NOTE | 2019-09-15 07:15 | NUR ---
OPENING NOTE SHIFT REPORT RECEIVED AND ASSUMED CARE OF PT FROM RIKA FUENTES
--- NOTE | 2019-09-15 08:00 | NUR ---
TUBE FEEDING TURNED OFF DUE TO CPAP TRIAL IN AM
[2019-09-15] MEDS: FAMOTIDINE (10MG/ML) 2ML VL IV SCH (09:44)
[2019-09-15] MEDS: cefTRIAXone 1GM/50ML D5W 50 ML IV SCH (09:44)
[2019-09-15] MEDS: ENOXAPARIN SOD 40 MG/0.4 ML SYRINGE SC SCH (09:45)
[2019-09-15] MEDS: PROPOFOL 100 ML IV SCH ×2 (09:52→20:01)
--- NOTE | 2019-09-15 11:00 | NUR ---
DR. COURTNEY AT BEDSIDE ORDERS RECEIVED
--- NOTE | 2019-09-15 11:40 | NUR ---
DR. Rachid DEAN AT BEDSIDE ORDERS RECEIVED
--- NOTE | 2019-09-15 11:50 | NUR ---
Nutrition Follow-up Notes Wt.: 119.9 kg today. Pt's intubated, no immediate family member at bedside during rounds this morning. Pt's currently sedated with Propofol @ 18.513 ml/hr providing 410 kcal from Fat. Pt's currently NPO, just restarted the EN support earlier d/t high residuals yesterday, with order for Jevity 1.2 Moshe @ 50 ml/hr providing 1440 kcal, 67 gms pro and 968 ml free water. Est. Needs: 1750 kcal to 2350 kcal (15-20 kcal/kgBW), 94 gms to 117 gms pro (0.8-1.0 gms/kgBW). Will continue to monitor pertinent labs and reassess nutrient need prn Labs: Gluc 141 H, Cl 94 L, CO2 38 H, BUN 25 H, AST 122 H, ALT 196 H, Tpro 6.0 L, Alb 2.0 L Skin: Dwayne scale 13, mod risk, skin intact per property caretaker. GI: Pt's no bowel activity since 09/10/19 per property caretaker. PES: Increased nutrient needs r/t acute/chronic medical condition aeb intubated, sedated, CA, mod hypoalbuminemia, NPO. Altered nutrition related lab values r/t current/chronic medical condition aeb hyperglycemia, hypochloremia, hypocapnia, and mod hypoalbuminemia Obesity r/t food intake more than body requirement aeb 184% IBW, BMI 39.2 kg/m2 and increased body adiposity Will continue to monitor NPO status, EN tolerance, skin status, pertinent labs and weight trend. F/u in 2 to 3 days. Rec.: 1.) If still NPO with EN support, consider gradual increase on feeding rate of Jevity 1.2 Moshe to 55 ml/hr goal rate as tolerated while in current rate of Propofol when medically appropriate. 2.) If Albumin continues trending down, consider Prostat 1 pkt BID. 3.) Advance gradually to oral diet when medically appropriate. 4.) Refer to RD for further nutrition educ. and weight monitoring upon discharge. 5.) Continue current plan of care.
[2019-09-15] MEDS ORDERED: methylPREDNISolone SOD SUCC 125 MG/2 ML VL IV SCH (14:00)
--- NOTE | 2019-09-15 18:00 | NUR ---
PT IS MORE ALERT AND RESPONDS TO SIMPLE COMMANDS WITH SPONTANEOUS EYE OPENING
--- NOTE | 2019-09-15 19:20 | NUR ---
CLOSING NOTE SHIFT REPORT GIVEN AND CARE ENDORSED TO BARBARA FUENTES
--- NOTE | 2019-09-15 19:20 | NUR ---
BED BED ASSIGNMENT FOR [facility] ROOM 7429 . CALL PLACED TO DAUGHTER ALEJANDRO FOR UPDATE WITH NO ANSWER. MESSAGE LEFT, WILL AWAIT RETURN CALL
--- NOTE | 2019-09-15 19:40 | NUR ---
MD DR GALLEGOS CALLED WITH UPDATED TRANSFER INFORMATION. STATED "YES, PLEASES LETS GO AHEAD WITH THE TRANSFER"
--- NOTE | 2019-09-15 19:50 | NUR ---
REPORT REPORT CALLED TO MEHNAZ FUENTES. [facility] RF TECHNICIAN TIME 2030. ALL QUESTIONS ANSWERED.
[2019-09-15] MEDS: MIDAZOLAM DRIP 50 mg/50mL 50 ML IV SCH (20:34)
[2019-09-15] MEDS: NOREPINEPHRINE 8 MG/250ML KIT 250 ML IV SCH (20:35)
--- NOTE | 2019-09-15 21:00 | NUR ---
[facility] AT BEDSIDE FOR TRANSFER.
--- NOTE | 2019-09-15 21:30 | NUR ---
DISCHARGE PT BEING TRANSFERRED TO HIGHER LEVEL OF CARE AT [facility]. PT TRANSFERRED TO [facility] CONNECTED TO [facility] MONITORS AND VENTILATOR. AL PT BELONGINGS TRANSFERRED WITH PATIENT. DAUGHTER ALEJANDRO UPDATED ON TRANSFER, WILL MEET PATIENT AT [facility]. [facility] CALLED WITH UPDATED VITALS AND TRANSFER TIME. CARE TRANSFERRED TO [facility] CCT GINA ALLEN
== END 2019-09-15 21:30 | disposition short-term general hospital (02) | DRG 720 ==
LOC: EDBD 13:47 → ER 14:07 → TELE 14:08 → ICU WEST 09-11 07:15
PROVIDERS: ADMIT Nurse Practitioner Acute Care; ATTEND Internal Medicine
PROC: 5A1955Z Respiratory Ventilation, Greater than 96 Consecutive Hours (ICD-10-PCS; principal; 2019-09-10)
PROC: 0BH17EZ Insertion of Endotracheal Airway into Trachea, Via Natural or Artificial Opening (ICD-10-PCS; 2019-09-10)
DX: A41.9 Sepsis, unspecified organism (principal); J96.21 Acute and chronic respiratory failure with hypoxia; J18.9 Pneumonia, unspecified organism; J91.0 Malignant pleural effusion; J44.0 Chronic obstructive pulmonary disease with (acute) lower respiratory infection; E44.0 Moderate protein-calorie malnutrition; C78.7 Secondary malignant neoplasm of liver and intrahepatic bile duct; C34.91 Malignant neoplasm of unspecified part of right bronchus or lung; J98.11 Atelectasis; J44.1 Chronic obstructive pulmonary disease with (acute) exacerbation; R65.20 Severe sepsis without septic shock; F17.210 Nicotine dependence, cigarettes, uncomplicated; E66.9 Obesity, unspecified; K21.9 Gastro-esophageal reflux disease without esophagitis; J96.22 Acute and chronic respiratory failure with hypercapnia; M10.9 Gout, unspecified; R59.0 Localized enlarged lymph nodes; E87.2 Acidosis; Z68.41 Body mass index [BMI] 40.0-44.9, adult; Z99.81 Dependence on supplemental oxygen; Z85.858 Personal history of malignant neoplasm of other endocrine glands; Z90.89 Acquired absence of other organs; Z98.51 Tubal ligation status; Z80.8 Family history of malignant neoplasm of other organs or systems; Z83.3 Family history of diabetes mellitus; Z82.49 Family history of ischemic heart disease and other diseases of the circulatory system; Z79.899 Other long term (current) drug therapy
CPT/HCPCS: 36415; 36600; 71045; 71260; 76604; 80048; 80053; 80076; 80202; 81001; 82607; 82728; 82746; 82805; 83540; 83550; 83605; 83735; 83880; 84484; 84702; 85025; 85379; 85610; 85730; 87040; 87070; 87081; 87205; 93005; 93970; 94002; 94003; 94640; 96365; 96367; 96375; 99291; G0378; J0330; J0696; J2250; J2405; J2704; J3490; J7060

== ENCOUNTER 2019-09-20 16:14 | Inpatient (IN) | payer MEDICAID ==
[~2019-09-20] VITALS: Ht 167.6 cm; Wt 116.1 kg
[~2019-09-20 16:14] MED LIST changes: +BISA1TAB6 PO; +HYDR-4833 PO; +LORA2TAB89 PO; +MORP15TA PO
--- NOTE | 2019-09-20 22:15 | NUR ---
Direct Admit Note ALEN ROJAS admitted to Telemetry/MS unit as a direct admit per MD order. Patient oriented to VESNA TURNER RN primary RN, unit, room, bed, and unit policies regarding patient care and visiting hours. Patient now on continuous telemetry monitoring, tele box #1 placed on bedside oxygen, weighed by bedscale and encouraged to call if they need something. No s/s of SOB or distress noted. Patient denies pain at this time. All questions and concerns addressed, patient verbalized understanding. MD notified of patients arrival and admit orders received..
[2019-09-20 22:54] VITALS: BP 96/64
[2019-09-20] MEDS ORDERED: MORPHINE SULF INJ 2 MG/ML SYRINGE 1ML IV PRN (23:45)
[2019-09-20] MEDS ORDERED: NITROGLYCERIN 0.4 MG SL TAB SL PRN (23:45)
[2019-09-21] MEDS ORDERED: MORPHINE SULF INJ 2 MG/ML SYRINGE 1ML IV PRN
[2019-09-21] MEDS ORDERED: ACETAMINOPHEN 325 MG TAB PO PRN
[2019-09-21] MEDS ORDERED: SENNA 8.6 MG TAB PO PRN
[2019-09-21 00:36] VITALS: BP 96/64
[2019-09-21 01:01] LABS: Basophils # (auto) 0.1 uL; Basophils % (auto) 0.8 % (0.0-2.0); Eosinophils # (auto) 0.4 uL; Eosinophils % (auto) 3.1 % (0.0-7.0); Hematocrit 36.8 % (36.0-46.0); Hemoglobin 11.8 g/dL (12.2-16.2); Lymphocytes # (auto) 1.2 uL; Lymphocytes % (auto) 9.4 % (10.0-50.0); Mean Corpuscular Hgb Conc. 32.1 g/dL (32.0-36.0); Monocytes # (auto) 0.9 uL; Monocytes % (auto) 6.9 % (0.0-12.0); Neutrophils # (auto) 10.3 uL; Neutrophils % (auto) 79.8 % (37.0-80.0); Nucleated Red Blood Cells % 0.1 %; Platelet Count (auto) 206 10^3/uL (140-450); Red Blood Cells 4.55 10^6/uL (4.0-5.20); Red Cell Distribution Width 17.4 % (11.8-14.3); White Blood Cell 12.9 10^3/uL (4.4-10.8)
[2019-09-21 01:23] LABS: Albumin 2.4 g/dL (3.4-5.0); BUN/Creatinine Ratio 47.5; Potassium 3.1 mmol/L (3.5-5.1)
[2019-09-21 01:25] LABS: Bilirubin, Total 0.7 mg/dL (0.2-1.0); Total Protein 5.5 g/dL (6.4-8.2)
[2019-09-21] MEDS ORDERED: LEVOFLOXACIN 500MG 100 ML IV ONE (03:00)
[2019-09-21 05:16] VITALS: BP 93/76
--- NOTE | 2019-09-21 07:00 | NUR ---
Opening Shift Note Assumed care of patient, awake and alert. No S/S of distress/SOB or pain. Instructed on POC and to call for assist PRN, will continue to monitor for changes Q1hr and PRN.
--- NOTE | 2019-09-21 08:43 | NUR ---
RT NOTE: WENT TO PTS ROOM TO ASSESS FOR PRN BREATHING TX, HR 98, RR 16, SPO2 95% ON 3L NC. NO S/S OF SOB. NO INDICATION FOR TX AT THIS TIME. WILL CONTINUE TO MONITOR PT.
[2019-09-21] MEDS: ENOXAPARIN SOD 40 MG/0.4 ML SYRINGE SC SCH (08:49)
[2019-09-21] MEDS: ONDANSETRON HCL 4 MG/2 ML VIAL IV PRN ×2 (08:49→20:46)
[2019-09-21] MEDS: FAMOTIDINE 20 MG TAB PO SCH ×2 (08:49→21:03)
[2019-09-21 09:00] VITALS: BP 104/60
--- NOTE | 2019-09-21 12:00 | NUR ---
Dr. Jian MD, at bedside.
[2019-09-21 13:00] VITALS: BP 113/66
[2019-09-21 17:00] VITALS: BP 93/53
--- NOTE | 2019-09-21 18:50 | NUR ---
PT ASSESSED FOR PRN TX. PT RESTING WITH NO ACUTE DISTRESS NOTED, PT DENIES SOB. TX IS NOT INDICATED AT THIS TIME. PT IS AWARE TO PAGE IF TX NEEDED. HR 95 RR 20 POX 91 ON 2 LPM VIA NC. B/S CLEAR BUT DECREASED.
--- NOTE | 2019-09-21 19:22 | NUR ---
Opening Shift Note Report received from day shift RN. Assumed care of patient. Patient awake sitting in bed and A&O x4. Family at bedside. No S/S of distress/SOB noted and states having pain at this time, 8/10 on a numerical scale. Will medicate patient as ordered. Ortiz in place hung below bladder draining freely. Bed in lowest locked position, side rails up x2, call light within reach. Instructed on POC and to call for assist PRN, will continue to monitor for changes Q1hr and PRN.
[2019-09-21] MEDS: HYDROcodone-ACET 10/325MG TAB PO PRN (20:46)
[2019-09-21 21:51] VITALS: BP 104/48
[2019-09-22] MEDS: LEVOFLOXACIN 500MG 100 ML IV SCH ×2 (00:04→23:54)
[2019-09-22] MEDS: IPRATROPIUM BROM 0.5 MG/2.5ML INH SOL NEB PRN ×2 (03:55→10:13)
[2019-09-22] MEDS: ALBUTEROL SULF 2.5 MG/0.5ML(0.5%) NEB SOLN NEB PRN ×2 (03:56→10:13)
--- NOTE | 2019-09-22 04:03 | NUR ---
PATIENT COMPLAINING OF SOB. RT AT BEDSIDE GIVING BREATHING TREATMENT. WILL CONTINUE TO MONITOR.
[2019-09-22 04:56] VITALS: BP 100/53
[2019-09-22 08:37] VITALS: BP 101/59
--- NOTE | 2019-09-22 09:15 | NUR ---
PT EXPRESSING WISHES TO GO OUTSIDE TO SMOKE. PT INSTRUCTED AND TAUGHT ON RISKS OF BEHAVIOR. PT REPORTS SHE NEEDS TO GET OUT AND SMOKE, PT WILLING TO SIGN AMA FORM, FORM SIGNED BY PT, PT OFF UNIT FOR SMOKE. FORM IN CHART.
--- NOTE | 2019-09-22 10:20 | NUR ---
PT BACK IN UNIT
--- NOTE | 2019-09-22 10:30 | NUR ---
DR. MIRZA IN TO SEE PT. PT IN AGREEMENT WITH PLAN OF CARE. 1040: PASSED MORNING MEDICATIONS, ADVISED AND INSTRUCTED PT NOT TO SMOKE WHILE NICOTINE PATCH IN PLACE. PT VERBALIZED UNDERSTANDING. CALL LIGHT WITHIN REACH.
[2019-09-22] MEDS: ENOXAPARIN SOD 40 MG/0.4 ML SYRINGE SC SCH (10:41)
[2019-09-22] MEDS: NICOTINE 14 MG/24HR TOPICAL PATCH TD SCH (10:42)
[2019-09-22] MEDS: FAMOTIDINE 20 MG TAB PO SCH ×2 (10:43→21:29)
[2019-09-22] MEDS: HYDROcodone-ACET 10/325MG TAB PO PRN ×2 (10:43→20:42)
[2019-09-22 13:00] VITALS: BP 99/65
[2019-09-22 17:00] VITALS: BP 109/61
--- NOTE | 2019-09-22 19:00 | NUR ---
Respiratory note: PT ASSESSED FOR PRN MED NEB TX. HR 92, RR 20, SPO2 95% ON RA. NO SIGNS OF ANY RESPIRATORY DISTRESS NOTED. ADVISED PT TO CALL IF TX IS NEEDED. RT NAME AND PAGER NUMBER WRITTEN ON PT'S BOARD.
--- NOTE | 2019-09-22 19:35 | NUR ---
OPENING SHIFT NOTE RECEIVED REPORT FROM DAYSHIFT RN. PATIENT SITTING IN WHEELCHAIR REQUESTING TO GO OUTSIDE TO SMOKE WITH FAMILY ACCOMPANYING PATIENT. PATIENT A/O X4, BEDREST. NO S/S OF DISTRESS OR SOB. NO PAIN NOTED OR REPORTED AT THIS TIME. UPDATED PATIENT ON POC, VERBALIZED UNDERSTANDING. BED LOCKED IN LOW POSITION, CALL LIGHT WITHIN REACH. WILL CONTINUE TO MONITOR PATIENT Q1HR AND PRN.
[2019-09-22] MEDS: ONDANSETRON HCL 4 MG/2 ML VIAL IV PRN (20:42)
[2019-09-22 22:00] VITALS: BP 116/60
[2019-09-23] MEDS: ONDANSETRON HCL 4 MG/2 ML VIAL IV PRN ×2 (02:41→07:39)
[2019-09-23] MEDS: IPRATROPIUM BROM 0.5 MG/2.5ML INH SOL NEB PRN (02:57)
[2019-09-23] MEDS: ALBUTEROL SULF 2.5 MG/0.5ML(0.5%) NEB SOLN NEB PRN (02:57)
[2019-09-23 05:00] VITALS: BP 108/65
--- NOTE | 2019-09-23 08:25 | NUR ---
Respiratory note: HR 82, RR 16, SPO2 97% ON 2 L NC, BS CLEAR AND DIMINISHED. PRN MED NEB TX NOT INDICATED AT THIS TIME.NO SIGNS OR SYMPTOMS OF RESPIRATORY DISTRESS NOTED AT THIS TIME. PT INFORMED TO HIT CALL BUTTON IF FEELING SOB OR WHEEZING.
[2019-09-23 08:46] VITALS: BP 117/54
[2019-09-23] MEDS: NICOTINE 14 MG/24HR TOPICAL PATCH TD SCH (09:20)
[2019-09-23] MEDS: ENOXAPARIN SOD 40 MG/0.4 ML SYRINGE SC SCH (09:20)
[2019-09-23] MEDS: FAMOTIDINE 20 MG TAB PO SCH (09:20)
[2019-09-23] MEDS: HYDROcodone-ACET 10/325MG TAB PO PRN (09:28)
--- NOTE | 2019-09-23 10:59 | NUR ---
Nutrition Assessment Notes please see attached link for complete assessment Est. Needs based on ABW (87 kg): 1366-4434 kcal (17-20 kcal/kgBW), 87-95 gms pro (1.0-1.1 gms/kgBW). Will continue to monitor pertinent labs and reassess nutrient need prn Addendum: 09/23/19 at [address] Amended: Links added.
[2019-09-23 13:23] VITALS: BP 120/78
--- NOTE | 2019-09-23 13:40 | NUR ---
DR. MIRZA WAS IN TO SEE PT AND STATED THAT HE WILL DISCHARGE PT TO SNF ON O2.
--- NOTE | 2019-09-23 15:35 | NUR ---
Social Service consult regarding Advance Directives. Provided pt with information on Advance Directives and Durable Power of Blower Insulator Form. Pt verbalized understanding and accepted information. Will contact [employer]ning [employer] Operator for any further concerns or issues.
[2019-09-23 16:49] VITALS: BP 91/54
--- NOTE | 2019-09-23 17:00 | NUR ---
RICH CATHETER REMOVED AND PT TOLERATE THE PROCEDURE. PT C/O BURNING/ ITCHING IN THE SITE PRIOR TO REMOVAL . OLD CATH TI NOTED TO BE INTACT.
--- NOTE | 2019-09-23 17:55 | NUR ---
TALKED TO PT'S DAUGHTER ALEJANDRO BY PHONE AND NOTIFIED OF PT 'S SCHEDULED DISCHARGE TO [facility] TODAY.
[2019-09-23 18:06] VITALS: BP 91/54
--- NOTE | 2019-09-23 18:40 | NUR ---
PORTACATH ACCESS DISCONTINUED AFTER FLUSHING IT WITH SALINE AND HEPARIN PER PROTOCOL. PT TOLERATED THE PROCEDURE WELL.
--- NOTE | 2019-09-23 19:40 | NUR ---
PATIENT TRANSFER TO [facility] Discharge instructions given as ordered. All questions and concerns addressed. Patient verbalized understanding. Patient transported by [facility] transporter in wheelchair with all personal belongings. No distress noted at time of departure.
--- NOTE | 2019-09-24 08:55 | NUR ---
Discharge planning per SS consult, patient has orders to dc to SNF for PT. Referral was faxed to [facility], [facility], and [facility]. [facility] and [facility] did not have any female beds available. [facility] accepted the patient into room [address] Stahl. Obtained auth from [facility] for [id number], [id number]. Auth was provided to . Transportation was arranged through [facility] with [employer]. 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 Nurse Navneet was advised of dc plan. Addendum: 09/24/19 at 0901 by SACHI JEFFREY Amended: Links added.
== END 2019-09-23 19:37 | DRG 720 ==
LOC: EAST 22:26 → TELE-EAST 23:41
PROVIDERS: ADMIT Internal Medicine; ATTEND Internal Medicine
DX: A41.9 Sepsis, unspecified organism (principal); J96.01 Acute respiratory failure with hypoxia; J90 Pleural effusion, not elsewhere classified; C78.7 Secondary malignant neoplasm of liver and intrahepatic bile duct; J18.9 Pneumonia, unspecified organism; E66.01 Morbid (severe) obesity due to excess calories; C34.90 Malignant neoplasm of unspecified part of unspecified bronchus or lung; Z68.41 Body mass index [BMI] 40.0-44.9, adult; J44.9 Chronic obstructive pulmonary disease, unspecified; Z92.21 Personal history of antineoplastic chemotherapy; Z87.891 Personal history of nicotine dependence; Z90.89 Acquired absence of other organs; Z98.51 Tubal ligation status; Z80.8 Family history of malignant neoplasm of other organs or systems; Z82.49 Family history of ischemic heart disease and other diseases of the circulatory system; Z71.6 Tobacco abuse counseling; Z87.440 Personal history of urinary (tract) infections; Z87.01 Personal history of pneumonia (recurrent)
CPT/HCPCS: 36415; 80053; 83735; 85025; 94640; 97116; 97530; G0378; J1642; J1956; J2405